=== PATIENT | female | born 1995 | race Caucasian/White ===

== ENCOUNTER 2017-06-06 00:41 | Emergency (ER) | payer SELFPAY ==
[~2017-06-06] VITALS: Ht 91.4 cm; Wt 54.4 kg
[2017-06-06] MEDS ORDERED: Solu-MEDROL 125mg Inj IVP ONE (01:00)
[2017-06-06 01:05] VITALS: BP 108/60
[2017-06-06 02:00] VITALS: BP 112/62
[2017-06-06] MEDS ORDERED: BENADRYL25 MG ORAL (02:00)
[2017-06-06] MEDS ORDERED: PREDNISONE20 MG ORAL (02:00)
--- NOTE | 2017-06-06 02:00 | Emergency Room Report ---
History of Present Illness General Chief Complaint: Allergic Reaction Source: Patient, EMS Present Illness HPI Is a 21-year-old female with no past medical history. She presents with an allergic reaction. She was putting her face and her pillow sleeping. She woke up old facial swelling and itching. She called 911. They gave her Benadryl and epinephrine. She is better now. Able been her eyes. No other rest or distress. No other complaint. Similar symptom one time for the same thing. No new medication. No new soap or detergent. Allergies: Coded Allergies: No Known Allergies (Unverified , 06/06/17) Patient History Past Medical History: see triage record, old chart reviewed Past Surgical History: none Pertinent Family History: none Social History: Denies: smoking Now: No Immunizations: other Reviewed Nursing Documentation: PMH: Agreed, PSxH: Agreed Nursing Documentation-PMH Past Medical History: No Stated History Review of Systems Eye: Denies: eye pain, blurred vision ENT: Denies: ear pain, nose congestion, throat swelling Respiratory: Denies: cough, shortness of breath Cardiovascular: Denies: chest pain, palpitations Gastrointestinal: Denies: abdominal pain, diarrhea, nausea, vomiting Musculoskeletal: Denies: back pain, joint pain Skin: Denies: rash Neurological: Denies: headache, numbness Endocrine: Denies: increased thirst, increased urine Hematologic/Lymphatic: Denies: easy bruising All Other Systems: negative except mentioned in HPI Physical Exam Vital Signs Date Time Temp Pulse Resp B/P (MAP) Pulse Ox O2 Delivery O2 Flow Rate FiO2 06/06/17 00:31 98.1 120 18 118/5 98 Room Air vitals with tachycardia Sp02 EP Interpretation: reviewed, normal General Appearance: well appearing, no apparent distress, alert Head: normocephalic, atraumatic Eyes: bilateral eye PERRL, bilateral eye EOMI, bilateral eye other - Puffiness of eyes ENT: hearing grossly normal, normal pharynx, other - Puffiness of the face Neck: full range of motion, supple, no meningismus Respiratory: chest non-tender, lungs clear, normal breath sounds Cardiovascular #1: regular rate, rhythm, no murmur Gastrointestinal: normal bowel sounds, non tender, no mass, no organomegaly, no bruit, non-distended Musculoskeletal: back normal, gait/station normal, normal range of motion Psychiatric: mood/affect normal Skin: warm/dry Medical Decision Making Diagnostic Impression: Primary Impression: Allergic reaction Qualified Codes: T78.40XA - Allergy, unspecified, initial encounter ER Course Patient with allergic reaction. No anaphylaxis. Better now. Heart rate normal. We'll discharge home. Last Vital Signs Date Time Temp Pulse Resp B/P (MAP) Pulse Ox O2 Delivery O2 Flow Rate FiO2 06/06/17 01:05 98.1 92 20 108/60 99 Room Air Status: improved Disposition: HOME, SELF-CARE Condition: Stable Scripts Prednisone* (PREDNISONE*) 20 Mg Tablet 40 MG ORAL DAILY, #6 TAB Prov: SILVER BO M.D. 06/06/17 Diphenhydramine Hcl* (BENADRYL*) 25 Mg Capsule 50 MG ORAL Q6H Y for Itching, #30 CAP Prov: SILVER BO M.D. 06/06/17 Patient Instructions: Allergies Additional Instructions: Followup your DrDale in 7 days. Return for any issue. SILVER BO M.D. Jun 06, 2017 02:00
[2017-06-06 02:15] VITALS: BP 112/62
== END 2017-06-06 02:15 | disposition home or self-care (01) ==
LOC: EDBD 00:41 → EMR 01:00
DX: T78.40XA Allergy, unspecified, initial encounter (principal); X58.XXXA Exposure to other specified factors, initial encounter; L29.9 Pruritus, unspecified
CPT/HCPCS: 96374; 99284; J2930